=== PATIENT | female | born 1985 | race Caucasian/White ===

== ENCOUNTER 2019-01-01 02:35 | Emergency (ER) | payer MEDICAID, OTHER ==
[~2019-01-01] VITALS: Ht 165.1 cm; Wt 67.3 kg
[~2019-01-01 02:35] MED LIST: DIAZ10TA PO
[2019-01-01 03:38] LABS: CLARITY,URINE SLIGHTLY CLOUDY (Clear); COLOR,URINE YELLOW (Yellow); GLUCOSE, URINE NEGATIVE (Neg); KETONES,URINE NEGATIVE (Neg); LEUKOCYTE ESTERASE ,URINE TRACE (Neg); NITRITES, URINE NEGATIVE (Neg); OCCULT BLOOD,URINE SMALL (Neg); PH,URINE 5.5 (4.8-8.0); PROTEIN,URINE NEGATIVE (Neg); URINE HCG NEGATIVE (NEG); UROBILINOGEN,URINE 0.2 E.U/dL (0.2-1.0)
[2019-01-01 03:39] LABS: UA COLLECTION TYPE CLN CATCH MIDSTREAM
[2019-01-01 03:43] LABS: BACTERIA,URINE FEW /HPF (Neg); RBC,URINE NONE SEEN /HPF (0-2); SQUAMOUS EPITHELIAL CELL,UR MODERATE /LPF (FEW)
[2019-01-01 03:44] LABS: TRANSITIONAL EPI CELLS,URINE FEW /HPF
[2019-01-01 03:51] LABS: URINE AMPHETAMINE SCREEN POSITIVE (Neg); URINE BARBITUATE SCREEN NEGATIVE (Neg); URINE BENZODIAZEPINES SCREEN NEGATIVE (Neg); URINE CANNABINOID SCREEN POSITIVE (Neg); URINE COCAINE SCREEN NEGATIVE (Neg); URINE METHADONE SCREEN NEGATIVE (Neg); URINE OPIATE SCREEN NEGATIVE (Neg); URINE PHENCYCLIDINE SCREEN NEGATIVE (Neg)
[2019-01-01] MEDS ORDERED: MUPI22OI30 TOP (04:13)
[2019-01-01] MEDS ORDERED: ibuprofen 200mg tablet PO ONE (04:15)
[2019-01-01 04:27] VITALS: BP 153/106
== END 2019-01-01 04:32 | disposition home or self-care (01) ==
LOC: ER 02:36
DX: L03.211 Cellulitis of face (principal); M54.5 Low back pain; G89.29 Other chronic pain; R21 Rash and other nonspecific skin eruption; F41.9 Anxiety disorder, unspecified; F17.200 Nicotine dependence, unspecified, uncomplicated; F12.90 Cannabis use, unspecified, uncomplicated; Z79.899 Other long term (current) drug therapy
CPT/HCPCS: 80305; 81001; 81025; 87077; 87088; 87186; 99283

== ENCOUNTER 2019-01-20 12:12 | Emergency (ER) | payer OTHER ==
[~2019-01-20] VITALS: Ht 165.1 cm; Wt 57.7 kg
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
[2019-01-20] MEDS ORDERED: LORazepam 1 MG tablet PO ONE (12:35)
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
--- NOTE | 2019-01-20 13:00 | NUR ---
pt having more anxity she stepped outside to get some fresh air she left her stuff in her room
[2019-01-20 13:06] LABS: CLARITY,URINE CLEAR (Clear); COLOR,URINE YELLOW (Yellow); GLUCOSE, URINE NEGATIVE (Neg); KETONES,URINE TRACE mg/dl (Neg); LEUKOCYTE ESTERASE ,URINE NEGATIVE (Neg); NITRITES, URINE POSITIVE (Neg); OCCULT BLOOD,URINE NEGATIVE (Neg); PROTEIN,URINE 30 mg/dl (Neg); URINE HCG NEGATIVE (NEG); UROBILINOGEN,URINE 0.2 E.U/dL (0.2-1.0)
[2019-01-20 13:08] LABS: UA COLLECTION TYPE VOIDED
[2019-01-20 13:18] LABS: URINE AMPHETAMINE SCREEN POSITIVE (Neg); URINE BARBITUATE SCREEN NEGATIVE (Neg); URINE BENZODIAZEPINES SCREEN NEGATIVE (Neg); URINE CANNABINOID SCREEN POSITIVE (Neg); URINE COCAINE SCREEN NEGATIVE (Neg); URINE METHADONE SCREEN NEGATIVE (Neg); URINE OPIATE SCREEN NEGATIVE (Neg); URINE PHENCYCLIDINE SCREEN NEGATIVE (Neg)
[2019-01-20 13:22] LABS: SQUAMOUS EPITHELIAL CELL,UR MANY /LPF (FEW); WBC,URINE 30-50 /HPF (0-4)
[2019-01-20 13:23] LABS: BACTERIA,URINE 4+ /HPF (Neg); RBC,URINE NONE SEEN /HPF (0-2)
[2019-01-20] MEDS ORDERED: SULF1TAB49 PO (14:01)
[2019-01-20] MEDS ORDERED: DOXY100C43 PO (14:03)
[2019-01-20 14:24] VITALS: BP 138/107
== END 2019-01-20 14:26 | disposition home or self-care (01) ==
LOC: ER 12:13
DX: F41.9 Anxiety disorder, unspecified (principal); N39.0 Urinary tract infection, site not specified; R00.0 Tachycardia, unspecified; F15.90 Other stimulant use, unspecified, uncomplicated; F12.90 Cannabis use, unspecified, uncomplicated; Z79.899 Other long term (current) drug therapy; Z59.0 Homelessness
CPT/HCPCS: 80305; 81001; 81025; 99284